=== PATIENT | male | born 1965 | race Two or more races ===

== ENCOUNTER 2020-06-18 13:09 | Emergency (ER) | payer SELFPAY ==
[~2020-06-18] VITALS: Ht 170.2 cm; Wt 73.0 kg
[2020-06-18] MEDS ORDERED: IBUPROFEN 600MG TABLET PO STA (13:51)
[2020-06-18 14:07] LABS: BASOPHILS % 0.8 % (0.0-2.0); EOSINOPHILS % 1.5 % (0.0-5.0); HEMATOCRIT. 42.7 % (42.0-52.0); LYMPHOCYTES % 21.7 % (20.0-50.0); MEAN CORPUSCULAR HEMOGLOBIN 28.1 pg (28.0-32.0); MEAN CORPUSCULAR VOLUME 85.7 fL (80.0-94.0); MEAN PLATELET VOLUME 6.9 fl (7.4-10.4); MONOCYTES % 9.5 % (2.0-8.0); NEUTROPHILS % 66.5 % (40.0-76.0); PLATELET 264 x1000/uL (130-400); RED BLOOD CELL COUNT 4.98 mill/uL (4.7-6.1); RED CELL DISTRIBUTION WIDTH 13.2 % (11.6-14.6)
[2020-06-18 14:12] LABS: CHLORIDE 102 mEq/L (98-107)
[2020-06-18 14:17] LABS: ETHANOL BLOOD < 10 mg/dL
[2020-06-18 15:53] LABS: CLARITY URINE CLEAR (CLEAR); COLOR URINE YELLOW (YELLOW); KETONES URINE TRACE (NEGATIVE); LEUKOCYTE ESTERASE URINE NEGATIVE (NEGATIVE); NITRITE URINE NEGATIVE (NEGATIVE); OCCULT BLOOD URINE NEGATIVE (NEGATIVE); PROTEIN URINE NEGATIVE (NEGATIVE); SPECIFIC GRAVITY URINE 1.025 (1.005-1.030)
[2020-06-18 16:04] LABS: *AMPHETAMINES SCREEN URINE PRESUMTIVE POSITIVE (NEGATIVE); *BARBITURATES SCREEN URINE NEGATIVE (NEGATIVE); *BENZODIAZEPINES SCREEN URINE NEGATIVE (NEGATIVE); *COCAINE SCREEN URINE NEGATIVE (NEGATIVE)
[2020-06-18 16:10] LABS: METHADONE URINE SCREEN NEGATIVE (NEGATIVE); OPIATES URINE SCREEN NEGATIVE (NEGATIVE); PHENCYCLIDINE URINE SCREEN NEGATIVE (NEGATIVE)
[2020-06-18 16:11] LABS: CANNABINOID URINE SCREEN NEGATIVE (NEGATIVE)
[2020-06-18] MEDS ORDERED: HAL5 MT (17:09)
[2020-06-18 18:00] VITALS: BP 131/80
== END 2020-06-18 18:30 | disposition left against medical advice (07) ==
LOC: ER 13:09
DX: F29 Unspecified psychosis not due to a substance or known physiological condition (principal); M25.562 Pain in left knee; F15.10 Other stimulant abuse, uncomplicated; F41.9 Anxiety disorder, unspecified; F31.9 Bipolar disorder, unspecified; F20.9 Schizophrenia, unspecified
CPT/HCPCS: 36415; 73560; 80053; 80305; 80307; 80320; 80329; 81003; 85025; 93005; 99285; G0480

== ENCOUNTER 2021-03-09 15:24 | Emergency (ER) | payer MEDICAID ==
[~2021-03-09] VITALS: Ht 167.6 cm; Wt 75.0 kg
[~2021-03-09 15:24] MED LIST: HAL5 MT
[2021-03-09 16:07] VITALS: BP 141/67
== END 2021-03-09 19:58 | disposition left against medical advice (07) ==
LOC: ER 15:24
DX: Z53.21 Procedure and treatment not carried out due to patient leaving prior to being seen by health care provider (principal)